=== PATIENT | female | born 2000 | race Caucasian/White ===

== ENCOUNTER 2021-11-22 22:38 | Emergency (ER) | payer OTHER ==
[2021-11-22 23:17] LABS: RAPID STREP SCREEN Negative (Negative)
[2021-11-23] MEDS ORDERED: DEXAMETHASONE 10 MG/ML VIAL PO STA (00:38)
[2021-11-23] MEDS ORDERED: CHERRY SYRUP 10 ML UDC PO ONE (00:38)
[2021-11-23 00:48] VITALS: BP 123/76
--- NOTE | 2021-11-28 06:58 | ED Physician Documentation ---
PD HPI HEENT - Stated complaint Stated Complaint: SORE THROAT - Chief complaint Chief Complaint: Heent - History obtained from History obtained from: Patient - History of Present Illness Timing - onset: Yesterday Timing - details: Gradual onset Location: Throat Improves: Nothing Worsens: Swalllowing Associated symptoms: No: Fever, Congestion Similar symptoms before: Diagnosis (similar to previous episodes of strep throat) Recently seen: Not recently seen Review of Systems Constitutional: reports: Myalgias. denies: Fever, Chills, Sweats Throat: reports: Sore throat Respiratory: denies: Dyspnea, Cough PD PAST MEDICAL HISTORY - Past Medical History Past Medical History: No - Past Surgical History Past Surgical History: No - Allergies Allergies/Adverse Reactions: Allergies Allergy/AdvReac Type Severity Reaction Status Date / Time No Known Drug Allergies Allergy Verified 11/22/21 22:46 - Social History Does the pt smoke?: No Smoking Status: Never smoker - Immunizations Immunizations are current?: Yes PD ED PE NORMAL - Vitals Vital signs reviewed: Yes - General General: Alert and oriented X 3, No acute distress, Well developed/nourished - HEENT HEENT: Moist mucous membranes, Other (mild posterior oropharyngeal erythema without exudate) - Neck Neck: Supple, no meningeal sign - Respiratory Respiratory: No respiratory distress, Clear bilaterally Results - Vitals Vitals: Oxygen O2 Source Room air - Labs Labs: Microbiology 11/22/21 23:02 Group A Strep Throat Culture - Final Throat MIXED OROPHARYNGEAL TRAVON PRESENT. NO BETA STREP PRESENT IN CULTURE. Laboratory Tests 11/22/21 23:02 Group A Strep Rapid Negative PD MEDICAL DECISION MAKING - ED course Complexity details: reviewed results, considered differential, d/w patient ED course: rapid strep negative. Given 10mg PO decadron for pharyngitis. Results reviewed with patient, no further testing/treatment indicated at this time, informed she will receive call if throat culture is positive for infection. Departure - Departure Disposition: 01 Home, Self Care Clinical Impression: Pharyngitis Condition: Good Instructions: ED Pharyngitis Viral Report Pending Comments: The rapid strep test was negative. You were given a one-time dose of steroid (decadron) in the ER, as this sometimes helps reduce the inflammation and the discomfort of pharyngitis. You can take tylenol or ibuprofen in addition as per label instructions. A culture will be performed on the swab of your throat, and if it grows out strep bacteria (this usually takes 1-2 days), you should receive a phone call and an antibiotic can then be sent to your pharmacy. Otherwise, this is likely a viral pharyngitis which will resolve on its own after several days. Discharge Date/Time: 11/23/21 00:46
== END 2021-11-23 00:46 | disposition home or self-care (01) ==
LOC: ED 22:38
DX: J02.9 Acute pharyngitis, unspecified (principal)
CPT/HCPCS: 87070; 87430; 99282; 99283; A9270